=== PATIENT | female | born 1950 | race Caucasian/White ===

== ENCOUNTER 2021-09-19 14:51 | Inpatient (IN) | payer MEDICARE, OTHER ==
[~2021-09-19] VITALS: Ht 157.5 cm; Wt 112.0 kg
--- NOTE | ~2021-09-19 | EMS ---
[place] [id number] EMS Patient Care Report Name: MADDY DÍAZ Room: [place] [address] ADM [place] [facility]#: [id number] Admission: 09/19/21 Attend Phys: John Graf Discharge: Date of : 46 Report #: [id number] THIS REPORT FOR: //name// Report Transmitted: 09/19/2021 15:50 EMS Care Summary [facility] Incident [id number] @ 09/19/2021 13:54 Incident Location [address] [place] [address] Patient MADDY DÍAZ Female, 70 Years 1950 Patient Address [address] [place] [address] Patient History Hypertension (HTN), Patient Allergies No known allergies, Chief Complaint SOB Disposition Transported No Lights/Sanders Dispatch Reason Breathing Problem Transported To [facility] Narrative [facility] was dispatched to residence for a C/C of SOA. Upon arrival we found female pt sitting at the bottom half of the stairs with a nasal canula on. She appeared to be having a hard time catching her breath. Her called us because he was worried about her HR, because the finger monitor he put on her says her pulse is 105. He reports that she was in the hospital at [facility] for a week for Covid related pneumonia, He reports that she [address] [place] [address] EMS Patient Care Report Name: MADDY DÍAZ Room: [place] [address] ADM IN M.R.#: [id number] Admission: 09/19/21 Attend Phys: John Graf Discharge: Date of : 46 Report #: [id number] tested positive and negative at the hospital for Covid. They sent her home with steroids' and on oxygen. She reports that she has been doing fine until today when she got SOB trying to get up the stairs to go to the bathroom. She reports that she has been sitting on the stairs for about an hour. I explained to them that her HR being 105 while walking up the stairs is nothing to be alarmed about. The only bathroom in her house was upstairs which she couldn't get up. Her portable oxygen tank had 500lb of air left in it and she had about a 30ft long Oxygen tube. she was 92% on 6L via nasal cannula. She looked tired and was too weak to get off the stairs, she became very short of breath with very little exertion. She did not want to go to the hospital. I had to explain to her with her being too week to get up and walk and not able to get to the bathroom and being almost out of oxygen that i thought it was best that she go to the hospital before she gets worse. i had to continue to explain to her that i did not feel comfortable leaving her on the stairs. She finally decided to go but she did not want to go back to [facility]. She agreed on [facility]. She was assisted from the stairs to the stair chair and then taken outside to the cot. She was strapped in with all cot straps and taken to ambulance. Transport to [facility] non emergent. En route she was continuously monitored. She reports that she does not feel short of breath but she appeared to be working hard to breath and could only talk in one or two word sentences. Breath sounds were equal and clear. Radio report given to [facility]. Upon arriving at destination pt was transferred out of ambulance and to ER bed 13. She scooted herself over from cot to bed without incident. Report and transfer of care was given to Nurse. Initial Vitals @14:24P: 103,R: 20,BP: 100/48,GCS: 15,SpO2: 92,Revised Trauma: 12, @14:41P: 100,R: 16,BP: 121/73,GCS: 15,SpO2: 93,Revised Trauma: 12, Impression Acute Respiratory Distress (Dyspnea) Timeline 13:51,Call Received 13:54,Dispatched 13:54,En Route 13:57,On Scene 13:58,At Patient 14:24,BP: 100/48 M,PULSE: 103,RR: 20 R,SPO2: 92 Ox,ETCO2: ,BG: ,PAIN: ,GCS: 15, 14:26,Depart Scene 14:41,BP: 121/73 M,PULSE: 100,RR: 16 R,SPO2: 93 Ox,ETCO2: ,BG: ,PAIN: ,GCS: 15, 14:48,At Destination 14:55,Transfer Patient 15:17,Call Closed [address] [address] EMS Patient Care Report Name: MADDY DÍAZ Room: [place] [address] ADM IN M.R.#: [id number] Admission: 09/19/21 Attend Phys: John Graf Discharge: Date of : 46 Report #: [id number] 15:17,In District Disclaimer v1.1 Copyright 2020 [employer] This EMS Care Summary contains data elements from the applicable legal record (which may be displayed differently). It is designed to provide pertinent information for the following purposes: continuity of care, clinical quality, and state data reporting. The complete legal record is available to ED staff and administrators of the receiving hospital in [facility]'s Patient Tracker. All data is provided "as is."
[2021-09-19 14:56] VITALS: BP 98/69
[2021-09-19] MEDS ORDERED: BLOOD PRESSURE (15:02)
[2021-09-19] MEDS ORDERED: NORVASC10 MG PO (15:08)
[2021-09-19 15:39] LABS: HEMATOCRIT 42.1 % (37.0-47.0); MCH 30.2 pg (26.0-34.0); MCHC 33.1 g/dL (28.0-37.0); MCV 91.1 fL (80.0-100.0); MPV 8.7 fl. (7.2-11.1); NUCLEATED RBCS 0 /100WBC; PLATELET COUNT* 239 thou/uL (150-400); RBC 4.63 mil/uL (4.20-5.00); RDW-CV 14.5 % (10.5-14.5); WBC 17.6 thou/uL (4.0-11.0)
[2021-09-19 15:47] LABS: CALCIUM 8.2 mg/dL (8.5-10.1); POTASSIUM 4.2 mmol/L (3.5-5.1)
[2021-09-19 16:02] LABS: ALBUMIN 2.6 g/dL (3.4-5.0); TOTAL BILIRUBIN 0.6 mg/dL (<0.1-1.0); TOTAL PROTEIN 6.6 g/dL (6.4-8.2)
[2021-09-19 16:31] LABS: ABSOLUTE LYMPHOCYTES 1.2 thou/uL (0.8-5.3); ABSOLUTE MONOCYTES 1.1 thou/uL (0.0-1.2); ABSOLUTE NEUTROPHILS 15.3 thou/uL (1.6-8.1); PLATELET ESTIMATE ADEQUATE
[2021-09-19 19:36] VITALS: BP 90/57
[2021-09-20 00:30] VITALS: BP 104/69
[2021-09-20 01:13] LABS: CALCIUM 8.1 mg/dL (8.5-10.1); MAGNESIUM 2.5 mg/dL (1.8-2.4); POTASSIUM 4.5 mmol/L (3.5-5.1)
[2021-09-20 04:28] VITALS: BP 117/75
[2021-09-20 08:00] VITALS: BP 125/80
[2021-09-20 12:00] VITALS: BP 116/65
--- NOTE | 2021-09-20 14:16 | EKG ---
[place] [address] ELECTROCARDIOGRAM REPORT Name: MADDY DÍAZ Room: [address] ADM IN M.R.#: [id number] Admission: 09/19/21 Attend Phys: Abisai Hein Discharge: Date of : 46 Date of Service: 09/19/21 1502 Report #: [id number] THIS REPORT FOR: //name// [facility] ED Test Date: 2021-09-19 Test Time: 15:02:50 Pat Name: MADDY DÍAZ Department: Room: [facility] Gender: F Building Construction Ironworker: TREVER : 1950 Requested By: Kalen Bolivar Order Number: [id number] MD: Christiano Iglesias Measurements Intervals [place] Rate: 100 P: 13 CA: 143 QRS: 11 QRSD: 115 T: 47 QT: 376 QTc: 485 Interpretive Statements Sinus tachycardia Atrial premature complex Incomplete right bundle branch block Low voltage, precordial leads Borderline ST depression, lateral leads No previous ECG available for comparison Electronically Signed On 09-20-2021 14:16:25 SECURITY TEAM LEAD by Christiano Iglesias [email or web address] <ELECTRONICALLY SIGNED> By: Christiano Iglesias MD, FAC 09/20/21 1416 1502 1502 Christiano Iglesias MD, [facility] /EPI
[2021-09-20 16:00] VITALS: BP 97/58
[2021-09-20 18:45] LABS: CALCIUM 7.8 mg/dL (8.5-10.1); CREATININE 1.1 mg/dL (0.6-1.3); POTASSIUM 4.3 mmol/L (3.5-5.1)
[2021-09-20 18:55] LABS: APTT 26.1 Seconds (25.0-31.3); INR 1.1; PROTIME 11.5 Seconds (9.20-11.50)
[2021-09-20 20:00] VITALS: BP 127/71
[2021-09-21 01:29] VITALS: BP 115/77
[2021-09-21 04:13] LABS: ABSOLUTE BASOPHILS 0.1 thou/uL (0.0-0.2); ABSOLUTE EOSINOPHILS 0.1 thou/uL (0.0-0.7); ABSOLUTE LYMPHOCYTES 3.6 thou/uL (0.8-5.3); ABSOLUTE MONOCYTES 1.2 thou/uL (0.0-1.2); ABSOLUTE NEUTROPHILS 9.1 thou/uL (1.6-8.1); BASOPHILS 0.5 %; EOSINOPHILS 0.5 %; HEMATOCRIT 36.8 % (37.0-47.0); LYMPHOCYTES 25.7 %; MCH 30.1 pg (26.0-34.0); MCHC 32.7 g/dL (28.0-37.0); MCV 92.1 fL (80.0-100.0); MONOCYTES 8.5 %; MPV 9.4 fl. (7.2-11.1); NUCLEATED RBCS 0 /100WBC; PLATELET COUNT* 174 thou/uL (150-400); POLYS 64.8 %; RDW-CV 14.3 % (10.5-14.5)
[2021-09-21 04:28] VITALS: BP 119/81
[2021-09-21 05:01] LABS: ALBUMIN 2.3 g/dL (3.4-5.0); CREATININE 0.8 mg/dL (0.6-1.3); MAGNESIUM 2.3 mg/dL (1.8-2.4); POTASSIUM 4.4 mmol/L (3.5-5.1); TOTAL BILIRUBIN 0.7 mg/dL (<0.1-1.0); TOTAL PROTEIN 5.6 g/dL (6.4-8.2)
[2021-09-21 08:00] VITALS: BP 126/79
--- NOTE | 2021-09-21 11:31 | CON ---
[address] [address] CONSULTATION Name: MADDY DÍAZ Room: [address] IN M.R.#: [id number] Admission: 09/19/21 Attend Phys: John Graf Discharge: Date of : 46 Report #: [id number] THIS REPORT FOR: cc: Demetrice Lawrence MD, Diane S. MD Pervez, Adeel MD ~ DATE OF CONSULTATION: 09/20/2021 REQUESTING PHYSICIAN: Isaias Villavicencio MD INDICATION FOR CONSULTATION: Respiratory failure/COVID-19. HISTORY OF PRESENT ILLNESS: A 70-year-old female, past medical history includes a history of morbid obesity, body mass index is 45. She has not been vaccinated for COVID-19. She does have a history of hypertension. She does not have a previous history of a cardiac or respiratory disease. Last week she was admitted to [facility], where she was treated for COVID-19. She did receive corticosteroids. She is describing a CT chest, which by her description appears to be a possible CTA chest. It is not known to me as to whether she received remdesivir while there or not. The patient subsequently was discharged home on oxygen. She, however, subsequently reported increasing weakness yesterday and also had increasing shortness of breath. She says that she fell. She hurt her right knee and that is why she came to the Emergency Room. She has had some sore throat as well. She has not been febrile. REVIEW OF SYSTEMS: For 12 points is negative except as mentioned above. PAST MEDICAL HISTORY: Recent COVID-19 as above, hypertension, morbid obesity, body mass index 45. I suspect that she may have previously undiagnosed obstructive sleep apnea. SOCIAL HISTORY: Lifetime nonsmoker. No known history of heavy alcohol use or illegal drug use. CURRENT MEDICATIONS: List in [employer] reviewed. HOME MEDICATIONS: List also in [employer] reviewed. ALLERGIES: No known drug allergies. FAMILY HISTORY: No pertinent family history. PHYSICAL EXAMINATION: GENERAL: She is alert, awake and oriented, does not appear to be in any [place] [address] CONSULTATION Name: MADDY DÍAZ Room: [address]#: [id number] Admission: 09/19/21 Attend Phys: John Graf Discharge: Date of : 46 Report #: [id number] VITAL SIGNS: She has a pulse of 91 and a blood pressure of 116/65. She is saturating 95%. She is on 3 liters nasal cannula. Respiratory rate is around 20. She is afebrile with a temperature of 36.5. Body mass index 45. HEENT: Head is normocephalic and atraumatic. Pupils are equal. She does have some red spots in her throat. Airway is narrow. NECK: Does not show raised JVP, asymmetry, mass or lymph nodes. CHEST: Symmetrical expansion on inspection and palpation. On auscultation, breath sounds are bilaterally equal. I do not hear any added sounds. Chest is clear to auscultation. HEART: Regular. There is no murmur. ABDOMEN: Soft and nontender. EXTREMITIES: Lower extremities show trace edema bilaterally. There is some tenderness in the right leg, it is more in the right knee than the right calf. LABORATORY DATA: The patient's lab work is in [facility], this is reviewed. Chest x-ray performed yesterday, which does show bilateral infiltrates in [facility] reviewed. ASSESSMENT/PLAN: 1. Acute hypoxemic respiratory failure. This is secondary to COVID-19. She likely has in the background obstructive sleep apnea. At this time, we will continue to titrate oxygen. Recommend prone positioning. Recommend ambulation if feasible. 2. COVID-19. She is on dexamethasone at 6 mg. We will continue the same. Not known to me as to whether the patient received remdesivir already at the other hospital. Her COVID-19 antigen is negative, potentially we could do a PCR; however, this will not loom changer; therefore, I did not order at this time. If she was to decline, remdesivir can be considered; for now, I decided to hold off. 3. Pulmonary infiltrates. I do see bilateral pulmonary infiltrates on her chest x-ray. She is not aware of any antibiotics she may have received before this admission. She is on Zithromax and ceftriaxone now. For now, I would continue current antibiotics. If she was to decline, I will have a low threshold of broadening as she may have healthcare-associated pneumonia. 4. Leg pain/knee pain, more likely secondary to trauma to the knee. Recommend obtaining an x-ray knee. If pain persists, may consider an ortho opinion, but certainly we should evaluate for thromboembolism as well. We will start by obtaining a D-dimer. If this is elevated, then we will do venous Dopplers and then assess as to whether further evaluation is indicated. 5. Sore throat/possible thrush. We will treat with nystatin. 6. Morbid obesity/possible obstructive sleep apnea ,would have a low threshold of using BiPAP if she was to decline. 7. Deep venous thrombosis prophylaxis, already on intermediate dose Lovenox. 8. Clostridium difficile prophylaxis. We will order Lactinex. [address] [address] CONSULTATION Name: MADDY DÍAZ Room: [address] IN .R.#: [id number] Admission: 09/19/21 Attend Phys: John Graf Discharge: Date of : 46 Report #: [id number] Thanks for this consultation. <ELECTRONICALLY SIGNED> By: Tristan Michel MD 09/21/21 1131 1432 1853Anilsa Michel MD /nt
[2021-09-21 12:47] VITALS: BP 120/71
[2021-09-21 16:58] VITALS: BP 133/74
[2021-09-21 20:00] VITALS: BP 141/63
[2021-09-22] VITALS: BP 159/69
[2021-09-22 04:00] VITALS: BP 154/71
[2021-09-22 08:00] VITALS: BP 129/74
[2021-09-22 12:55] LABS: ABSOLUTE LYMPHOCYTES 1.5 thou/uL (0.8-5.3); ABSOLUTE MONOCYTES 0.5 thou/uL (0.0-1.2); ABSOLUTE NEUTROPHILS 13.6 thou/uL (1.6-8.1); BASOPHILS 0.2 %; HEMATOCRIT 40.9 % (37.0-47.0); HEMOGLOBIN 13.5 gm/dL (12.0-15.0); LYMPHOCYTES 9.5 %; MCH 30.5 pg (26.0-34.0); MCHC 32.9 g/dL (28.0-37.0); MCV 92.7 fL (80.0-100.0); MONOCYTES 3.2 %; MPV 9.5 fl. (7.2-11.1); NUCLEATED RBCS 0 /100WBC; PLATELET COUNT* 192 thou/uL (150-400); POLYS 87.1 %; RBC 4.42 mil/uL (4.20-5.00); RDW-CV 14.7 % (10.5-14.5); WBC 15.6 thou/uL (4.0-11.0)
[2021-09-22 13:10] LABS: ALBUMIN 2.7 g/dL (3.4-5.0); CALCIUM 8.8 mg/dL (8.5-10.1); POTASSIUM 4.2 mmol/L (3.5-5.1); TOTAL BILIRUBIN 0.5 mg/dL (<0.1-1.0); TOTAL PROTEIN 6.8 g/dL (6.4-8.2)
--- NOTE | 2021-09-22 13:24 | 2DMMODE ---
[place] [address] 2 D/M-MODE ECHOCARDIOGRAM Name: MADDY DÍAZ Room: [address] IN [facility]#: [id number] Admission: 09/19/21 Attend Phys: Abisai Hein Discharge: Date of : 46 Date of Service: 09/22/21 1324 Report #: [id number] THIS REPORT FOR: cc: Demetrice Lawrence MD, Diane S. MD Holkins, John M. MD [facility] ~ APPROVED REPORT Study performed: 09/22/2021 10:15:25 EXAM: Comprehensive 2D, Doppler, and color-flow Echocardiogram Patient Location: In-Patient Room #: [facility] Status: routine BSA: 2.09 HR: 78 bpm BP: 129/74 mmHg Rhythm: NSR Other Information Study Quality: Good Indications Pulmonary Embolism 2D Dimensions IVSd: 10.95 (7-11mm) LVOT Diam: 19.91 (18-24mm) LVDd: 39.87 mm PWd: 9.92 (7-11mm) Ascending Ao: 33.84 (22-36mm) LVDs: 22.13 (25-40mm) Aortic Root: 31.33 mm Volumes Left Atrial Volume (Systole) LA ESV Index: 18.30 mL/m2 Aortic Valve AoV Peak Keo.: 1.97 m/s AO Peak Gr.: 15.58 mmHg LVOT Max P.04 mmHg AO Mean Gr.: 8.09 mmHg LVOT Mean P.29 mmHg LVOT Max V: 1.81 m/s AO V2 VTI: 36.30 cm LVOT Mean V: 1.16 m/s JAEL (VTI): 3.00 cm2 LVOT V1 VTI: 34.92 [place] [address] 2 D/M-MODE ECHOCARDIOGRAM Name: MADDY DÍAZ Room: [address]#: [id number] Admission: 09/19/21 Attend Phys: Abisai Hien Discharge: Date of : 46 Date of Service: 09/22/21 1324 Report #: [id number] Mitral Valve MV Mean Gr.: 2.08 mmHg E/A Ratio: 0.66 MV Decel. Time: 314.71 ms MV E Max Keo.: 0.74 m/s MV PHT: 91.27 ms MVA (PHT): 2.41 cm2 TDI E/Lateral E': 9.25 E/Medial E': 8.22 Medial E' Keo.: 0.09 m/s Lateral E' Keo.: 0.08 m/s Pulmonary Valve PV Peak Keo.: 1.12 m/s PV Peak Gr.: 5.06 mmHg Tricuspid Valve RAP Estimate: 5.00 mmHg TR Peak Gr.: 49.56 mmHg RVSP: 54.00 mmHg PA Pressure: 54.00 mmHg Left Ventricle The left ventricle is normal size. There is normal LV segmental wall motion. There is normal left ventricular wall thickness. Left ventricular systolic function is normal. The left ventricular ejection fraction is within the normal range. LVEF is 60-65%. Grade I - abnormal relaxation pattern. Right Ventricle The right ventricle is normal size. The right ventricular systolic function is normal. Atria The left atrium size is normal. The right atrium size is normal. Aortic Valve Mild aortic valve sclerosis. No aortic regurgitation is present. No hemodynamically significant valvular aortic stenosis. Mitral Valve There is mitral annular calcification. There is no mitral valve regurgitation noted. No evidence of mitral valve stenosis. Tricuspid Valve The tricuspid valve is normal in structure. Mild tricuspid regurgitation. Moderate [place] [address] 2 D/M-MODE ECHOCARDIOGRAM Name: MADDY DÍAZ Room: [address] IN ..#: [id number] Admission: 09/19/21 Attend Phys: Abisai Hein Discharge: Date of : 46 Date of Service: 09/22/21 1324 Report #: [id number] Pulmonic Valve The pulmonary valve is normal in structure. Trace pulmonic regurgitation. Great Vessels The aortic root is normal in size. IVC is normal in size and collapses >50% with inspiration. Pericardium There is no pericardial effusion. <Conclusion> The left ventricle is normal size. There is normal left ventricular wall thickness. Left ventricular systolic function is normal. The left ventricular ejection fraction is within the normal range. LVEF is 60-65%. Grade I - abnormal relaxation pattern. The right ventricle is normal size. The left atrium size is normal. Mild aortic valve sclerosis. No aortic regurgitation is present. No hemodynamically significant valvular aortic stenosis. There is mitral annular calcification. There is no mitral valve regurgitation noted. No evidence of mitral valve stenosis. The tricuspid valve is normal in structure. Mild tricuspid regurgitation. Moderate pulmonary hypertension. IVC is normal in size and collapses >50% with inspiration. There is no pericardial effusion. There is normal LV segmental wall motion. <ELECTRONICALLY SIGNED> By: Christiano Iglesias MD, FACC 09/22/21 1324 1324 132 Christiano Iglesias MD, FACC /INF
[2021-09-22 16:00] VITALS: BP 120/62
[2021-09-22 20:00] VITALS: BP 123/63
[2021-09-23 00:44] VITALS: BP 132/62
[2021-09-23 04:43] VITALS: BP 137/61
[2021-09-23 08:00] VITALS: BP 136/83
[2021-09-23 11:37] LABS: HEMOGLOBIN 12.1 gm/dL (12.0-15.0); MCH 30.3 pg (26.0-34.0); MCHC 32.5 g/dL (28.0-37.0); MCV 93.2 fL (80.0-100.0); MPV 9.6 fl. (7.2-11.1); NUCLEATED RBCS 0 /100WBC; PLATELET COUNT* 176 thou/uL (150-400); RBC 3.97 mil/uL (4.20-5.00); RDW-CV 14.9 % (10.5-14.5); WBC 11.6 thou/uL (4.0-11.0)
[2021-09-23] MEDS ORDERED: CEFDINIR300 MG PO (11:48)
[2021-09-23] MEDS ORDERED: NEXIUM40 MG PO (11:48)
[2021-09-23] MEDS ORDERED: DEXAMETHASONE1 MG PO (11:48)
[2021-09-23] MEDS ORDERED: ELIQUIS5 MG PO (11:49)
[2021-09-23] MEDS ORDERED: ELIQUIS5 M1 PO (11:49)
[2021-09-23 12:00] VITALS: BP 124/60
[2021-09-23 12:06] LABS: ALBUMIN 2.3 g/dL (3.4-5.0); CALCIUM 8.4 mg/dL (8.5-10.1); CREATININE 0.8 mg/dL (0.6-1.3); MAGNESIUM 2.2 mg/dL (1.8-2.4); POTASSIUM 4.2 mmol/L (3.5-5.1); TOTAL BILIRUBIN 0.5 mg/dL (<0.1-1.0); TOTAL PROTEIN 5.9 g/dL (6.4-8.2)
[2021-09-23 12:07] LABS: ABSOLUTE MONOCYTES 0.6 thou/uL (0.0-1.2)
[2021-09-23 12:08] LABS: CLUMPED PLTS OCCASIONAL; PLATELET ESTIMATE ADEQUATE
[2021-09-23 15:36] VITALS: BP 124/60
[2021-09-25 18:06] LABS: ANA INTERPRETATION Negative (())
== END 2021-09-23 17:10 | disposition home health service (06) | DRG 871 ==
LOC: M.ERS 14:51 → M.ORTHSURG 16:41 → M.TBA-ER 16:41 → M.ORTHSURG 19:45 → M.2W 09-23 08:16
PROVIDERS: Emergency Medicine Emergency Medical Services; Internal Medicine; Internal Medicine Critical Care Medicine; ADMIT Internal Medicine; ATTEND Internal Medicine
PROC: 5A0935A Assistance with Respiratory Ventilation, Less than 24 Consecutive Hours, High Flow/Velocity Cannula (ICD-10-PCS; principal; 2021-09-22)
DX: A41.89 Other specified sepsis (principal); U07.1 COVID-19; J12.82 Pneumonia due to coronavirus disease 2019; J80 Acute respiratory distress syndrome; I26.99 Other pulmonary embolism without acute cor pulmonale; Z68.42 Body mass index [BMI] 45.0-49.9, adult; I10 Essential (primary) hypertension; E66.01 Morbid (severe) obesity due to excess calories; M25.569 Pain in unspecified knee; J02.9 Acute pharyngitis, unspecified; Z79.899 Other long term (current) drug therapy; Z28.21 Immunization not carried out because of patient refusal